=== PATIENT | female | born 1980 | race Caucasian/White ===

== ENCOUNTER 2024-01-14 09:19 | Outpatient (AMB) | payer OTHER, SELFPAY ==
--- NOTE | 2024-01-14 09:42 | MHC.OFFWIV ---
Intake Vital Signs 01/14/24 09:43 Height 5 ft 6 in Weight 156 lb 4 oz BMI 25.2 BP 124/86 Blood Pressure Location Lt brachial Position Sitting Pulse 115 H Pulse Source Pulse Oximeter Temp 98.1 F Temp Source Oral Pulse Oximetry (%) 100 Oxygen Delivery Method Room Air Intake Visit Reasons: [employer] sinus pain/pressure Intake Note: Patient here for possible sinu infection that has been present for about about 1 week and has developed some green mucus, has had chills and headaches. Patient Tobacco Use Status: Never used Tobacco Accompanied by: Self / Same As Patient Allergies sulfamethoxazole [From Bactrim] Adverse Reaction (Mild, Verified 01/14/24 09:46) Rash trimethoprim [From Bactrim] Adverse Reaction (Mild, Verified 01/14/24 09:46) Rash Do you need a note to return to daycare/school/sports/work: No HPI HPI Comments History of Present Illness Details She presents to office with sinus infection She had cold like symptoms > 1 week + congestion, sinus pressure, green mucus Pain 8/10 with headaches for last week She said ears feel blocked R ear has chronic issues and surgeries L ear she said was popping No fevers She has tried mucinex without relief PFSH Social History Patient Tobacco Use Status: Never used Tobacco Review of Systems Const Denies chills, Denies fever(s) and Reports headache(s) Eyes Denies blurry vision ENT Reports otalgia, Reports headache(s), Reports nasal congestion, Reports nasal discharge, Reports sinus pain, Reports sinus pressure, Denies sore throat and Denies throat swelling Card Denies chest pain and Denies dyspnea Resp Denies change in phlegm color, Denies chest congestion, Reports cough and Denies dyspnea Musc Denies myalgias Neuro Reports headache(s) Aller/Immun Denies throat swelling Physical Exam Vital Signs: Last Vital Signs Temp 98.1 F 01/14/24 09:43 Pulse 115 H 01/14/24 09:43 BP 124/86 01/14/24 09:43 Pulse Ox 100 01/14/24 09:43 Oxygen Delivery Method Room Air 01/14/24 09:43 BMI result Body Mass Index 25.2 General: Non-toxic, NAD. Speaking full sentences. Skin: Warm dry throughout Eye: EOMI HENT: Airway patent. Uvula midline. No pharyngeal erythema or edema. 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 R TM has scaring an erythema. No perforation. L TM slight erythema without bulge or perforation. + fluid bilaterally. No canal fb or discharge + sinus tenderness and rhinorrhea Respiratory: CTA bilaterally. No wheezes, rales or rhonchi Cardiac: RRR. No murmur MSK: Full ROM extremities. Neurology: A/O No aphasia or facial droop. Gait without abnormality Psych: Good mood and affect Assessment & Plan Assessment & Plan (1) Sinusitis: Code(s): J32.9 - Chronic sinusitis, unspecified Qualifiers: Sinusitis location: frontal Chronicity: acute Recurrence: non-recurrent Qualified Code(s): J01.10 - Acute frontal sinusitis, unspecified Plan: Patient seen and evaluated. She mentioned she is flying and i advised her she should not fly today due to fluid in ears and she is at high risk for TM rupture. She is aware but said she can not change flight. I told her I can not force her to but medically it is advised she does not Augmentin to pharmacy F/U with PCP in [place] Patient gave verbal understanding and had no additional questions or concerns at time of discharge All questions answered Medications: New amoxicillin-pot clavulanate 875-125 mg 1 tab PO BID 14 tabs 0RF Coding Level of Care Code New Pt Level 3 (79246) Diagnoses Acute non-recurrent frontal sinusitis J01.10 Sinusitis location: frontal Chronicity: acute Recurrence: non-recurrent
[2024-01-14 09:43] VITALS: BP 124/86; PULSE 115; TEMP 36.7; O2SAT 100; BMI 25.2
== END 2024-01-14 11:17 | disposition home or self-care (01) ==
PROVIDERS: Visit Provider Physician Assistant
DX: J01.10 Acute frontal sinusitis, unspecified (principal)
CPT/HCPCS: 99051; 99203